=== PATIENT | male | born 1985 | race Hispanic/Latino ===

== ENCOUNTER → 2022-07-10 10:19 | Outpatient (CLI) | payer SELFPAY ==
--- NOTE | ~2022-07-10 | XR_ITS ---
EXAMINATION: XR chest 2V DATE: 07/10/2022 10:41 INDICATION: Chronic TECHNIQUE: PA and lateral views of the chest are obtained. COMPARISON: None available FINDINGS: The lungs are free of acute opacities. No pleural effusion or pneumothorax. The cardiomedia stinal silhouette is normal. The visualized bones and soft tissues are unremarkable. IMPRESSION: 1. No acute cardiopulmonary abnormality. Reviewed, dictated and finalized at location B.
== END ==
PROVIDERS: PCP Registered Nurse; Visit Provider Registered Nurse
DX: R05.3 Chronic cough (principal)
CPT/HCPCS: 71046

== ENCOUNTER 2024-09-23 09:11 | Emergency (ER) | payer SELFPAY ==
[2024-09-23] VITALS (9 sets, daily range): BP systolic 126–128; BP diastolic 73–85; PULSE 64–121; RESP 15–20; TEMP 36.7; O2SAT 98–100
--- NOTE | ~2024-09-23 | XR_ITS ---
EXAMINATION: XR chest 2V DATE: 09/23/2024 09:53 INDICATION: Chest pain TECHNIQUE: PA and lateral views of the chest were obtained. COMPARISON: Chest radiograph dated 07/10/2022 FINDINGS: The lungs are clear with no focal airspace opacities, pulmonary edema, pleural effusion or pneumothor ax. The cardiomediastinal silhouette is normal. Chronic minimal anterior wedging at a couple mid thor acic vertebral bodies. IMPRESSION: 1. No acute cardiopulmonary disease. Reviewed, dictated and finalized at location A.
--- NOTE | 2024-09-23 09:13 | ECG_ITS ---
Test Date: 2024-09-23 09:17:57 Measurements Intervals [place] Rate: 100 P: 57 MO: 144 QRS: 47 QRSD: 102 T: 23 QT: 334 QTc: 431 Interpretive Statements SINUS TACHYCARDIA INCOMPLETE RIGHT BUNDLE BRANCH BLOCK MINIMAL Q WAVES- INFERIOR LEADS BORDERLINE ECG No previous ECG available for comparison Electronically Signed On 09-23-2024 16:07:15 CDT by Sincere Alvarez D.O.
--- OUTSIDE RECORDS SUMMARY | 2024-09-23 09:15 | XMS_ITS | Data Portability ---
Author Organization ELISE SHIVANIMariaelena Plummer Address [address] [place] [address] Care Team Providers Care Vpk Teacher Name Role Phone MARISOL MYRICK Primary Care Provider [phone] Assessment No assessment recorded. Plan of Treatment Reminders Order Date Submit Date Provider Last Modified By Organization Details Last Modified Time Details Appointments None recorde d. Lab respira tory allerge n panel - [facility] 2023 024 MAUREEN LOCKE, [address] [place] [address], [facility] [address], [place], [address], 4 20:09:50 CBC w/ auto diff 2023 024 MAUREEN LOCKE, [address] [place] [address], [address], [place], [address], 4 20:09:50 CMP, serum or plasma 2023 024 MAUREEN LOCKE, [address] [place] [address], [facility] [address], [place], [address], 4 20:09:49 lipid panel, serum 2023 024 MAUREEN LOCKE, [address] [place] [address], [address], [place], [address], 4 20:09:48 Referral pulmono logist referra l 2023 024 [facility], [address], [place], [address], 16:22:44 Procedures pulmona ry stress test, simple (PROC) 2023 shadiclara Moore [facility] (Cardio Ekg), [address], [place], [address], 13:39:37 Surgeries None recorde d. Imaging PFT, complet e - W/ Post Broncho dilator Spirome try 2023 024 [facility] [address], [place], [address], 4 13:39:16 XR, chest, 2 view 2023 [facility] (Cardio Ekg), [address], [place], [address], 13:57:17 XR, sinuses 2023 [facility] (Cardio [facility]kg), [address] [facility], [place], [address], 4 14:09:54 Medication Orders prednis one 10 mg tablets in a dose pack 2023 [facility] [address], [address] [place], [address], 4 10:41:40 doxycyc line hyclate 100 mg capsule 2023 [facility], [address] [place], [address], 4 10:41:40 Flonase Allergy Relief 50 mcg/act uation nasal spray,s uspensi on 2023 [facility], [address] [place], [address], 4 10:41:39 azelast ine 137 mcg (0.1 %) nasal spray [address] [facility] [address], [address] [place] [address], [address], 4 10:41:41 pantopr azole 40 mg tablet, delayed release [address] [facility] [address], [address] [place] [address], [address], 4 10:35:17 Singula ir 10 mg tablet [address] [facility] [address], [address] [place] [address], [address], 4 10:35:18 albuter ol sulfate HFA 90 mcg/act uation aerosol inhaler [address] [facility] [address], [address] [place] [address], [address], 4 10:35:15 cetiriz ine 10 mg tablet 2023 024 [place] [address], [address] [place] [address], [address], 4 13:00:48 cefdini r 300 mg capsule 2022 023 [place] [address], [address] [place] [address], [address], 4 12:35:43 Patient TargetsNo targets recorded. Patient Instructions Encounter Date Encounter Id Patient Instructions Last Modified By Organization Details Last Modified Time 09/30/2023 [id number] A healthy lifestyle: care instructions Not available 09/30/2023 13:53:40 chronic cough: care instructions Not available 09/30/2023 13:53:32 tos cr consuelo: instrucciones de cuidado - [chronic cough: care instructions] Not available 09/30/2023 13:53:32 Visita de contro l para hombres de 50 a 65 a os: Instrucciones de cuidado - [Well Visit 50 to 65: Care Instructions] Not available 09/30/2023 13:53:58 12/27/2023 [id number] Dejar el tabaco: Instrucciones de cuidado - [Quitting Tobacco: Care Instructions] ajamous Not available 12/27/2023 10:35:09 tos cr consuelo: instrucciones de cuidado - [chronic cough: care instructions] ajamous Not available 12/27/2023 10:35:09 sinusitis cr consuelo: instrucciones de cuidado - [chronic sinusitis: care instructions] ajamous Not available 12/27/2023 10:35:09 02/28/2024 [id number] Dejar el tabaco: Instrucciones de cuidado - [Quitting Tobacco: Care Instructions] ajamous Not available 02/28/2024 10:41:33 tos cr consuelo: instrucciones de cuidado - [chronic cough: care instructions] ajamous Not available 02/28/2024 10:41:33 sinusitis cr consuelo: instrucciones de cuidado - [chronic sinusitis: care instructions] ajamous Not available 02/28/2024 10:41:33 Reason for Referral Clinical Neuropsychologist Referral for C hronic cough Chronic cough Referring Physician: Layla Rivas, Feather Maker, Encounter Date: 09/30/2023 Results Created Date Observation Date Name Description Value Unit Range Abnormal Flag Note LastModifiedBy Organization Detail LastModifiedTime 09/30/19 24 10/01/2023 LIPID PANEL cholesterol, total 216 mg/dL 100-19 9 above high normal Not Available [facility] ([facility]) [address] [place], [address], 10/05/2023 20:09:48 09/30/19 24 10/01/2023 LIPID PANEL triglyceride s 473 mg/dL 0-149 above high normal Not Available [facility] ([facility]) [address] [place], [address], 10/05/2023 20:09:48 09/30/19 24 10/01/2023 LIPID PANEL HDL cholesterol 42 mg/dL >39 Not Available [facility]) [address] [place], [address], 10/05/2023 20:09:48 09/30/19 24 10/01/2023 LIPID PANEL VLDL cholesterol jenna 79 mg/dL 5-40 above high normal Not Available [facility] ([facility]) [address] [place], [address], 10/05/2023 20:09:48 09/30/19 24 10/01/2023 LIPID PANEL LDL chol calc ([facility]) 95 mg/dL 0-99 Not Available [facility] ([facility]) [address] [place], [address], 10/05/2023 20:09:48 09/30/19 24 10/01/2023 COMP. METAB OLIC PANEL (14) glucose 96 mg/dL 70-99 Not Available [facility] ([facility]) [address] [place], [address], 10/05/2023 20:09:49 09/30/19 24 10/01/2023 COMP. METAB OLIC PANEL (14) BUN 22 mg/dL 6-20 above high normal Not Available [facility] ([facility]) [address] [place], [address], 10/05/2023 20:09:49 09/30/19 24 10/01/2023 COMP. METAB OLIC PANEL (14) creatinine 0.95 mg/dL 0.76-1 .27 Not Available [facility] ([facility]) [address] [place], [address], 10/05/2023 20:09:49 09/30/19 24 10/01/2023 COMP. METAB OLIC PANEL (14) eGFR 105 mL/mi n/1.7 3 >59 Not Available [facility] ([facility]) [address], [place], [address], 10/05/2023 20:09:49 09/30/19 24 10/01/2023 COMP. METAB OLIC PANEL (14) BUN/creatini ne ratio 23 9-20 above high normal Not Available [facility] ([facility]) [address] [place], [address], 10/05/2023 20:09:49 09/30/19 24 10/01/2023 COMP. METAB OLIC PANEL (14) sodium 141 mmol/ L 134-14 4 Not Available [facility] ([facility]) [address] [facility] [place], [address], 10/05/2023 20:09:49 09/30/19 24 10/01/2023 COMP. METAB OLIC PANEL (14) potassium 4.0 mmol/ L 3.5-5. 2 Not Available [facility] ([facility]) [address] [place], [address], 10/05/2023 20:09:49 09/30/19 24 10/01/2023 COMP. METAB OLIC PANEL (14) chloride 105 mmol/ L 96-106 Not Available [facility] ([facility]) [address] [facility] [place], [address], 10/05/2023 20:09:49 09/30/19 24 10/01/2023 COMP. METAB OLIC PANEL (14) carbon dioxide, total 21 mmol/ L 20-29 Not Available [facility] ([facility]) [address] [facility] [place], [address], 10/05/2023 20:09:49 09/30/19 24 10/01/2023 COMP. METAB OLIC PANEL (14) calcium 9.5 mg/dL 8.7-10 .2 Not Available [facility] ([facility]) [address] [facility] [place], [address], 10/05/2023 20:09:49 09/30/19 24 10/01/2023 COMP. METAB OLIC PANEL (14) protein, total 7.0 g/dL 6.0-8. 5 Not Available [facility] ([facility]) [address], [place], [address], 10/05/2023 20:09:49 09/30/19 24 10/01/2023 COMP. METAB OLIC PANEL (14) albumin 4.7 g/dL 4.1-5. 1 Not Available [facility] ([facility]) [address] [place], [address], 10/05/2023 20:09:49 09/30/19 24 10/01/2023 COMP. METAB OLIC PANEL (14) globulin, total 2.3 g/dL 1.5-4. 5 Not Available [facility] ([facility]) [address], [place], [address], 10/05/2023 20:09:49 09/30/19 24 10/01/2023 COMP. METAB OLIC PANEL (14) A/G ratio 2.0 Not Available [facility] ([facility]) [address], [place], [address], 10/05/2023 20:09:49 09/30/19 24 10/01/2023 COMP. METAB OLIC PANEL (14) bilirubin, total 0.7 mg/dL 0.0-1. 2 Not Available [facility] ([facility]) [address] [place], [address], 10/05/2023 20:09:49 09/30/19 24 10/01/2023 COMP. METAB OLIC PANEL (14) alkaline phosphatase 84 IU/L 44-121 Not Available [facility] ([facility]) [address], [place], [address], 10/05/2023 20:09:49 09/30/19 24 10/01/2023 COMP. METAB OLIC PANEL (14) AST (SGOT) 15 IU/L 0-40 Not Available [facility] ([facility]) [address] [facility], [place], [address], 10/05/2023 20:09:49 09/30/19 24 10/01/2023 COMP. METAB OLIC PANEL (14) ALT (SGPT) 14 IU/L 0-44 Not Available [facility] ([facility]) [address] [facility], [place], [address], 10/05/2023 20:09:49 09/30/19 24 09/30/2023 ALLER GENS W/TOT AL IGE AREA 8 class description COMMEN T Level s of Speci fic IgE Class Descr iptio n of Class ----- ----- ----- ----- ----- -- ----- ----- ----- ----- ----- < 0.10 0 Negat elissa 0.10 - 0.31 0/I Equiv ocal/ Low 0.32 - 0.55 I Low 0.56 - 1.40 II Moder ate 1.41 - 3.90 III High 3.91 - 19.00 IV Very High 19.01 - 100.0 0 V Very High >100. 00 Very High Not Available [facility] ([facility]) [address] [facility], [place], [address], 10/05/2023 20:09:49 09/30/19 24 10/05/2023 ALLER GENS W/TOT AL IGE AREA 8 immunoglobul in E, total 8 IU/mL 6-495 Not Available [facility] ([facility]) [address] [facility], [place], [address], 10/05/2023 20:09:49 09/30/19 24 10/05/2023 ALLER GENS W/TOT AL IGE AREA 8 U367-ThT D pteronyssinu s <0.10 kU/L class0 Not Available [facility] ([facility]) [address] [facility], [place], [address], 10/05/2023 20:09:49 09/30/19 24 10/05/2023 ALLER GENS W/TOT AL IGE AREA 8 Z547-TeP D farinae <0.10 Not Available [facility] ([facility]) [address] [place], [address], 10/05/2023 20:09:49 09/30/19 24 10/05/2023 ALLER GENS W/TOT AL IGE AREA 8 S319-BdT CAT dander <0.10 Not Available [facility] ([facility]) [address] [place], [address], 10/05/2023 20:09:49 09/30/19 24 10/05/2023 ALLER GENS W/TOT AL IGE AREA 8 F056-PfV dog dander <0.10 Not Available [facility] ([facility]) [address] [place], [address], 10/05/2023 20:09:49 09/30/19 24 10/05/2023 ALLER GENS W/TOT AL IGE AREA 8 r063-KyN bermuda grass <0.10 Not Available [facility] ([facility]) [address] [place], [address], 10/05/2023 20:09:49 09/30/19 24 10/05/2023 ALLER GENS W/TOT AL IGE AREA 8 e635-MpU salty grass 0.24 kU/L class0 /I abnormal Not Available [facility] ([facility]) [address] [place], [address], 10/05/2023 20:09:49 09/30/19 24 10/05/2023 ALLER GENS W/TOT AL IGE AREA 8 S440-QdN cockroach, taiwanese <0.10 kU/L class0 Not Available [facility] ([facility]) [address] [facility], [place], [address], 10/05/2023 20:09:49 09/30/19 24 10/05/2023 ALLER GENS W/TOT AL IGE AREA 8 U793-VxU penicillium chrysogen <0.10 Not Available [facility] ([facility]) [address] [facility], [place], [address], 10/05/2023 20:09:49 09/30/19 24 10/05/2023 ALLER GENS W/TOT AL IGE AREA 8 J329-ZsM cladosporium herbarum <0.10 Not Available [facility] ([facility]) [address] [facility], [place], [address], 10/05/2023 20:09:49 09/30/19 24 10/05/2023 ALLER GENS W/TOT AL IGE AREA 8 E375-ZsZ aspergillus fumigatus <0.10 Not Available [facility] ([facility]) [address] [facility], [place], [address], 10/05/2023 20:09:49 09/30/19 24 10/05/2023 ALLER GENS W/TOT AL IGE AREA 8 O397-PqL alternaria alternata <0.10 Not Available [facility] ([facility]) [address] [place], [address], 10/05/2023 20:09:49 09/30/19 24 10/05/2023 ALLER GENS W/TOT AL IGE AREA 8 V948-MyY maple/box elder <0.10 Not Available [facility] ([facility]) [address] [place], [address], 10/05/2023 20:09:49 09/30/19 24 10/05/2023 ALLER GENS W/TOT AL IGE AREA 8 U622-KaU cedar, mountain <0.10 Not Available [facility] ([facility]) [address] [place], [address], 10/05/2023 20:09:49 09/30/19 24 10/05/2023 ALLER GENS W/TOT AL IGE AREA 8 K968-ZpH oak, white <0.10 Not Available [facility] ([facility]) [address], [place], [address], 10/05/2023 20:09:49 09/30/19 24 10/05/2023 ALLER GENS W/TOT AL IGE AREA 8 U192-XzP elm, eritrean <0.10 Not Available [facility] ([facility]) [address], [place], [address], 10/05/2023 20:09:49 09/30/19 24 10/05/2023 ALLER GENS W/TOT AL IGE AREA 8 G274-QvH maple leaf sycamore <0.10 Not Available [facility] ([place] [facility]) [address], [place], [address], 10/05/2023 20:09:49 09/30/19 24 10/05/2023 ALLER GENS W/TOT AL IGE AREA 8 J268-XyM cottonwood <0.10 Not Available [facility] ([place] [facility]) [address], [place], [address], 10/05/2023 20:09:49 09/30/19 24 10/05/2023 ALLER GENS W/TOT AL IGE AREA 8 J562-OxZ tono, white <0.10 Not Available [facility] ([facility]) [address], [place], [address], 10/05/2023 20:09:49 09/30/19 24 10/05/2023 ALLER GENS W/TOT AL IGE AREA 8 E523-FiS walnut <0.10 Not Available [facility] ([facility]) [address], [place], [address], 10/05/2023 20:09:49 09/30/19 24 10/05/2023 ALLER GENS W/TOT AL IGE AREA 8 N764-VxU pecan, hickory <0.10 Not Available [facility] ([facility]) [address] [facility], [place], [address], 10/05/2023 20:09:49 09/30/19 24 10/05/2023 ALLER GENS W/TOT AL IGE AREA 8 P813-EvD white mulberry <0.10 Not Available [facility] ([facility]) [address] [facility], [place], [address], 10/05/2023 20:09:49 09/30/19 24 10/05/2023 ALLER GENS W/TOT AL IGE AREA 8 J554-YaE ragweed, short <0.10 Not Available [facility] ([facility]) [address] [facility], [place], [address], 10/05/2023 20:09:49 09/30/19 24 10/05/2023 ALLER GENS W/TOT AL IGE AREA 8 C645-RoV thistle, maldivian <0.10 Not Available [facility] ([facility]) [address] [facility], [place], [address], 10/05/2023 20:09:49 09/30/19 24 10/05/2023 ALLER GENS W/TOT AL IGE AREA 8 Q576-ZtN pigweed, common <0.10 Not Available [facility] ([facility]) [address] [place], [address], 10/05/2023 20:09:49 09/30/19 24 10/05/2023 ALLER GENS W/TOT AL IGE AREA 8 W644-AeK rough marshelder <0.10 Not Available [facility] ([facility]) [address] [place], [address], 10/05/2023 20:09:49 09/30/19 24 10/05/2023 ALLER GENS W/TOT AL IGE AREA 8 H910-FrG mouse urine <0.10 Not Available [facility] ([facility]) [address] [facility], [place], [address], 10/05/2023 20:09:49 09/30/19 24 10/01/2023 CBC WITH DIFFE RENTI AL/PL ATELE T WBC 8.1 x10e3 /uL 3.4-10 .8 Not Available [facility] ([facility]) [address] [facility], [place], [address], 10/05/2023 20:09:50 09/30/19 24 10/01/2023 CBC WITH DIFFE RENTI AL/PL ATELE T RBC 4.96 x10e6 /uL 4.14-5 .80 Not Available [facility] ([facility]) [address] [facility], [place], [address], 10/05/2023 20:09:50 09/30/19 24 10/01/2023 CBC WITH DIFFE RENTI AL/PL ATELE T hemoglobin 14.6 g/dL 13.0-1 7.7 Not Available [facility] ([facility]) [address] [facility], [place], [address], 10/05/2023 20:09:50 09/30/19 24 10/01/2023 CBC WITH DIFFE RENTI AL/PL ATELE T hematocrit 43.5 % 37.5-5 1.0 Not Available [facility] ([facility]) [address] [facility], [place], [address], 10/05/2023 20:09:50 09/30/19 24 10/01/2023 CBC WITH DIFFE RENTI AL/PL ATELE T MCV 88 fL 79-97 Not Available [facility] ([facility]) [address] [place], [address], 10/05/2023 20:09:50 09/30/19 24 10/01/2023 CBC WITH DIFFE RENTI AL/PL ATELE T MCH 29.4 pg 26.6-3 3.0 Not Available [facility] ([facility]) [address] [facility], [place], [address], 10/05/2023 20:09:50 09/30/19 24 10/01/2023 CBC WITH DIFFE RENTI AL/PL ATELE T MCHC 33.6 g/dL 31.5-3 5.7 Not Available [facility] ([facility]) [address] [facility], [place], [address], 10/05/2023 20:09:50 09/30/19 24 10/01/2023 CBC WITH DIFFE RENTI AL/PL ATELE T RDW 14.7 % 11.6-1 5.4 Not Available [facility] ([facility]) [address] [facility], [place], [address], 10/05/2023 20:09:50 09/30/19 24 10/01/2023 CBC WITH DIFFE RENTI AL/PL ATELE T platelets 190 x10e3 /uL 150-45 0 Not Available [facility] ([facility]) [address] [facility], [place], [address], 10/05/2023 20:09:50 09/30/19 24 10/01/2023 CBC WITH DIFFE RENTI AL/PL ATELE T neutrophils 57 % notest ab. Not Available [facility] ([facility]) [address] [facility], [place], [address], 10/05/2023 20:09:50 09/30/19 24 10/01/2023 CBC WITH DIFFE RENTI AL/PL ATELE T lymphs 30 % notest ab. Not Available [facility] ([facility]) [address] [facility], [place], [address], 10/05/2023 20:09:50 09/30/19 24 10/01/2023 CBC WITH DIFFE RENTI AL/PL ATELE T monocytes 9 % notest ab. Not Available [facility] ([facility]) [address] [facility], [place], [address], 10/05/2023 20:09:50 09/30/19 24 10/01/2023 CBC WITH DIFFE RENTI AL/PL ATELE T eos 2 % notest ab. Not Available [facility] ([facility]) [address] [facility], [place], [address], 10/05/2023 20:09:50 09/30/19 24 10/01/2023 CBC WITH DIFFE RENTI AL/PL ATELE T basos 1 % notest ab. Not Available [facility] ([facility]) [address] [facility], [place], [address], 10/05/2023 20:09:50 09/30/19 24 10/01/2023 CBC WITH DIFFE RENTI AL/PL ATELE T neutrophils (absolute) 4.7 x10e3 /uL 1.4-7. 0 Not Available [facility] ([facility]) [address] [facility], [place], [address], 10/05/2023 20:09:50 09/30/19 24 10/01/2023 CBC WITH DIFFE RENTI AL/PL ATELE T lymphs (absolute) 2.4 x10e3 /uL 0.7-3. 1 Not Available [facility] ([facility]) [address] [facility], [place], [address], 10/05/2023 20:09:50 09/30/19 24 10/01/2023 CBC WITH DIFFE RENTI AL/PL ATELE T monocytes(ab solute) 0.7 x10e3 /uL 0.1-0. 9 Not Available [facility] ([facility]) [address] [facility], [place], [address], 10/05/2023 20:09:50 09/30/19 24 10/01/2023 CBC WITH DIFFE RENTI AL/PL ATELE T eos (absolute) 0.1 x10e3 /uL 0.0-0. 4 Not Available [facility] ([facility]) [address] [facility], [place], [address], 10/05/2023 20:09:50 09/30/19 24 10/01/2023 CBC WITH DIFFE RENTI AL/PL ATELE T baso (absolute) 0.1 x10e3 /uL 0.0-0. 2 Not Available [facility] ([facility]) [address] [facility], [place], [address], 10/05/2023 20:09:50 09/30/19 24 10/01/2023 CBC WITH DIFFE RENTI AL/PL ATELE T immature granulocytes 1 % notest ab. Not Available [facility] ([facility]) [address] [facility], [place], [address], 10/05/2023 20:09:50 09/30/19 24 10/01/2023 CBC WITH DIFFE RENTI AL/PL ATELE T immature grans (abs) 0.1 x10e3 /uL 0.0-0. 1 Not Available [facility] ([facility]) [address] [facility], [place], [address], 10/05/2023 20:09:50 01/24/20 24 01/24/2024 XR, sinus es No observ ation record ed. [facility] Scheduling [address] [place], [address], 02/03/2024 11:45:03 01/24/20 24 01/24/2024 XR, chest , 2 view No observ ation record ed. [facility] Scheduling [address] [place], [address], 02/03/2024 11:45:04 02/25/20 24 01/24/2024 kristian metry , [facility] hodil ation No observ ation record ed. ajamous Not Available 2023 12:06:53 Result Notes None recorded. Problems Name Problem SNOMED Code Status Onset Date Resolution Date Notes Provider Name and Address Organization Details Recorded Time Tobacco user 771601527 Active 2020 Freya Gupta RN null, [place] - [facility] 2 15:20:36 Dyslipid emia 930297411 Active 2021 Freya Gupta RN null, [place] - [facility] 2 14:45:55 Body mass index 25-29 - overweig ht 674532383 Active 2021 JESSE Farley Attn: Accountin g,[address] [facility], [place], [address], [place] - [place] 2 15:25:49 Chronic cough 01356871 Active 2023 MADDIE GOMEZ Attn: Accountin g,[address] [facility], [place], [address], [place] - [place] 4 13:53:24 Constipa tion 18376431 Completed 09/12/2020 Removal Reason: resolved JESSE Farley Attn: Accountmally g,[address] [facility], [place], [address], [place] 1 15:48:55 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 Medical Equipment None Reported. Allergies No known drug allergies Medications Name Sig Start Date Stop Date Status Note LastModified by Organization Details LastModified Time prednison e 10 mg tablet TAKE 4 TABLETS BY MOUTH ONCE DAILY IN THE MORNING START THE DAY BEFORE PROCEDUR E 09/29 completed Not Available Not Available Not Available doxycycli ne hyclate 100 mg capsule TAKE 1 CAPSULE BY MOUTH TWICE DAILY FOR 7 DAYS active Not Available Not Available No t Available cetirizin e 10 mg tablet Take 1 tablet every day by oral route for 30 days. 2023 active Not Available Not Available Not Avai lable ibuprofen 800 mg tablet TK 1 T PO TID PRN 05/27 /2021 completed Not Available Not Available Not Available prednison e 20 mg tablet TAKE 2 TABLETS BY MOUTH ONCE DAILY FOR 5 DAYS 08/03 completed Not Available Not Available Not Available sulfameth oxazole 800 mg-trimet hoprim 160 mg tablet TAKE 1 TABLET BY MOUTH TWICE DAILY START DAY BEFORE PROCEDUR E 09/29 completed Not Available Not Available Not Available prednison e 10 mg tablets in a dose pack Take 1 dose pk by oral route for 6 days. 2023 active Not Available Not Available Not Avai lable amoxicill in 875 mg tablet TAKE 1 TABLET BY MOUTH TWICE DAILY FOR 10 DAYS 08/03 completed Not Available Not Available Not Available famotidin e 20 mg tablet TAKE 1 TABLET BY MOUTH TWICE DAILY 09/29 completed Not Available Not Available Not Available hydrocodo ne 7.5 mg-acetam inophen 325 mg tablet TAKE ONE TABLET BY MOUTH 90 MINUTES PRIOR TO PROCEDUR E. BRING REMAININ G TABS WITH YOU TO PROCEDUR E, AND TAKE PER MD INSTRUCT IONS PREOP. 09/29 completed Not Available Not Available Not Available pantopraz ole 40 mg tablet,de layed release TAKE 1 TABLET BY MOUTH ONCE DAILY active Not Available Not Available No t Available montel[address] st 10 mg tablet TAKE 1 TABLET BY MOUTH ONCE DAILY active Not Available Not Available No t Available mupirocin 2 % topical ointment APPLY A SMALL AMOUNT TID FOR 10 DAYS 09/12 completed Not Available Not Available Not Available azelastin e 137 mcg (0.1 %) nasal spray USE 2 SPRAY(S) IN EACH NOSTRIL TWICE DAILY active Not Available Not Available No t Available diazepam 10 mg tablet TAKE ONE TABLET BY MOUTH 90 MINUTES PRIOR TO PROCEDUR E. BRING REMAININ G TABS WITH YOU TO PROCEDUR E, AND TAKE PER MD INSTRUCT IONS PREOP. 09/29 completed Not Available Not Available Not Available albuterol sulfate HFA 90 mcg/actua tion aerosol inhaler INHALE 2 PUFFS BY MOUTH 4 TIMES DAILY active Not Available Not Available No t Available cefdinir 300 mg capsule TAKE 1 CAPSULE BY MOUTH EVERY 12 HOURS 09/29 completed Not Available Not Available Not Available fluticaso ne propionat e 50 mcg/actua tion nasal spray,john pension USE 1 SPRAY(S) IN EACH NOSTRIL TWICE DAILY active Not Available Not Available No t Available loratadin e 10 mg tablet TAKE 1 TABLET BY MOUTH ONCE DAILY 09/29 completed Not Available Not Available Not Available Dulcolax (bisacody l) 5 mg tablet,de layed release 1 tab 2-3 times a week 02/02 completed reports sometime s takes for 3 months then stops then will restart when necessar y Not Available Not Available Not Available cetirizin e 10 mg capsule Take by oral route. active Not Available Not Available No t Available Vitals Date Recorded Body height Body mass index (BMI) Body weight Heart rate Respiratory rate Body temperature Systolic blood pressure Diastolic blood pressure Provider Name and Address Organization Details Last Updated DateTime 3 163.83 cm 27 kg/m2 08565.7 8 g 88 /min 18 /min 98 [degF] 113 mm[Hg] 73 mm[Hg] Butch Mckenzie LPN [facility] 3 15:30:13 Date Recorded Body height Body mass index (BMI) Body weight Oxygen saturation Oxygen saturation in Arterial blood by Pulse oximetry Body temperature Heart rate Systolic blood pressure Diastolic blood pressure Provider Name and Address Organization Details Last Updated DateTime 4 163.83 cm 27.4 kg/m2 59938.9 6 g 97 % 97 % 97.9 [degF] 82 /min 118 mm[Hg] 62 mm[Hg] Lourdes Clemons MA [facility] 4 12:44:00 Date Recorded Body height Body mass index (BMI) Body weight Heart rate Respiratory rate Body temperature Systolic blood pressure Diastolic blood pressure Provider Name and Address Organization Details Last Updated DateTime 3 163.83 cm 27 kg/m2 58991.7 8 g 67 /min 18 /min 98 [degF] 96 mm[Hg] 60 mm[Hg] Butch Mckenzie LPN [facility] 3 16:33:56 Date Recorded Body height Oxygen saturation Oxygen saturation in Arterial blood by Pulse oximetry Heart rate Respiratory rate Body temperature Body mass index (BMI) Body weight Systolic blood pressure Diastolic blood pressure Provider Name and Address Organization Details Last Updated DateTime 4 163.83 cm 97 % 97 % 82 /min 18 /min 98.2 [degF] 28.1 kg/m2 68496.3 3 g 100 mm[Hg] 59 mm[Hg] Ann Tang MA [facility] 4 09:42:30 Date Recorded Body height Oxygen saturation Oxygen saturation in Arterial blood by Pulse oximetry Heart rate Respiratory rate Body temperature Body mass index (BMI) Body weight Systolic blood pressure Diastolic blood pressure Provider Name and Address Organization Details Last Updated DateTime 4 163.83 cm 96 % 96 % 71 /min 18 /min 98.2 [degF] 28.4 kg/m2 28844.2 4 g 95 mm[Hg] 49 mm[Hg] Angy Morris MA [facility] 4 10:03:54 Social History Question Answer Notes LastModified by Organizat ion Details LastModified Time Tobacco Smoking Status Former Smoker stopped a couple months ago Lourdes Clemons MA [facility] 09/30/2023 12:39:40 Do You Have An Advance Directive? No Information not available 09/12/2020 Are You Blind Or Do You Have Difficulty Seeing? No Information not available 09/12/2020 What Is Your Level Of Caffeine Consumption? Moderate Monsters, Coffee, Soda [email or web address] Information not available 11/27/2014 How Much Tobacco Do You Chew? None [email or web address] Information not available 11/27/2014 In The 14 Days Before Symptom Onset, Have You Had Close Contact With A Laboratory-confir med COVID-19 While That Case Was Ill? No Information not available 09/12/2020 In The 14 Days Before Symptom Onset, Have You Had Close Contact With A Person Who Is Under Investigation For COVID-19 While That Person Was Ill? No Information not available 09/12/2020 Have You Been To An Area Known To Be High Risk For COVID-19? No Information not available 09/12/2020 Are You Deaf Or Do You Have Serious Difficulty Hearing? No Information not available 09/12/2020 What Type Of Diet Are You Following? REGULAR Information not available 11/27/2014 Education Less Than 8th Grade [email or web address] Information not available 11/27/2014 Are There Any Guns Present In Your Home? No [email or web address] Information not available 11/27/2014 Hard Of Hearing Or Deaf In One Or Both Ears? No [email or web address] Information not available 11/27/2014 Legally Blind In One Or Both Eyes? No [email or web address] Information no t available 11/27/2014 Marital Status Domestic Partner [email or web address] Information not available 11/27/2014 Do You Have A Medical Power Of Lead Technical Writer? No Information not available 12/27/2023 What Was The Date Of Your Most Recent Tobacco Screening? 12/27/2023 Information not available 12/27/2023 How Many Children Do You Have? 2 Information not available 02/02/2022 What Is Your Current Pack Years? [email or web address] Information not available 08/08/2021 Do You Use Protection During Sex? No Information not available 02/02/2022 What Is Your Relationship Status? Information not available 09/12/2020 Do You Use Your Seat Belt Or Car Seat Routinely? Yes Information not available 09/12/2020 Seat Belts Used Routinely Yes [email or web address] Information not available 11/27/2014 Are You Sexually Active? Yes Information not available 02/02/2022 Smoke Alarm In Home Yes [email or web address] Information not available 11/27/2014 Do You Have Smoke And Carbon Monoxide Detectors In Your Home? Yes Information not available 09/12/2020 Are You Passively Exposed To Smoke? No Information no t available 09/12/2020 How Much Tobacco Do You Smoke? No Information not available 11/27/2014 General Stress Level Low [email or web address] Information not available 11/27/2014 Do You Use Sunscreen Routinely? No Information not available 02/02/2022 Sex: Male Functional Status Question Answer Note LastModified by Organizat ion Details LastModified Time Do you use any illicit or recreational drugs? No Information not available 09/12/2020 Do you or have you ever used any other forms of tobacco or nicotine? No Information not available 09/12/2020 What is your level of alcohol consumption? Moderate 1 beer 4-5 day/ week Information not available 09/12/2020 Are you currently employed? Yes Information not available 09/12/2020 Are you able to care for yourself? 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 Occasional [email or web address] Information not available 11/27/2014 Mental Status Question Answer Note LastModified by Organization D etails LastModified Time Do you feel stressed (tense, restless, nervous, or anxious, or unable to sleep at night)? [id number] Information not available 02/02/2022 Family History Relationship Description Onset Age of this Age Resolved Age Notes LastModified by Organization Details LastModified Time Mother Alive [email or web address] Not available 02/2015 16:30:59 Mother Osteoporosis [email or web address] Not availab le 09/12/2020 15:54:58 Father Diabetes mellitus 43 [email or web address] Not available 2014 16:30:59 Brother Alive [email or web address] Not available 16:30:59 Paternal Grandmother Diabetes mellitus 65 [email or web address] Not available 2014 16:30:59 Medical History No medical history recorded. Immunizations Vaccine Type Date Status Note Provider Nam e and Address Organization Details Recorded Time COVID-19, mRNA, LNP-S, PF, 100 mcg/0.5mL dose or 50 mcg/0.25mL dose 08/05/2020 completed Freya Gupta RN null, [place] - [facility] 09/12/2020 15:25:12 COVID-19, mRNA, LNP-S, PF, 100 mcg/0.5mL dose or 50 mcg/0.25mL dose 08/30/2020 completed Freya Gu[place], [place] [facility] 09/12/2020 15:25:25 Tdap 09/12/2020 completed Lourdes Clemons [place] null, [place] [facility] 09/12/2020 16:41:32 COVID-19, mRNA, LNP-S, PF, 30 mcg/0.3 mL dose 04/04/2021 completed Freya Gu[place] RN null, [place] [facility] 04/04/2021 11:36:40 Influenza, split virus, quadrivalent, PF 02/02/2022 completed Marisol Myrick [facility] Attn: Accounting[address] [facility], [place], [address], [facility] - [facility] 02/02/2022 16:48:53 Past Encounters Encounter ID Performer Location Encounter Start Date Encounter Closed Date Diagnosis/Indication Diagnosis SNOMED-CT Code Diagnosis ICD10 Code [facility] [id number] [facility] [address] [place] [address] 11/27/2014 15:47:57 12/03/2014 13:18:35 Adult health examination 415642277 Patient refuses TDAP Vaccine booster at this time Family his tory of diabetes mellitus 402208760 Constipation 46488272 Posterior rhinorrhea 60641485 Recommend use otc antihistsm ine [id number] Marisol [facility] [address] [place] [address] 09/12/2020 14:57:51 09/17/2020 15:25:44 Adult health examination 644478184 Z00.01 35 y/o HM presents for general check up. Has gastritis symptoms. He drinks alcohol regularly and smokes 2 cigs per week. Body mass index 25-29 - overweight 413229100 Z68.27 BMI 27.1 Ht 5' 4.5 Healthy weight 110-150 Chronic gastritis 910793 9 K29.50 stop daily alcohol intake Family his tory of diabetes mellitus in first degree relative 551322370 Z83.3 father HIV screening 524648005 Z11.4 Hypertensi on screening 534129925 Z13.6 B/P 102/72 normal Administra tion of diphtheria, pertussis, and tetanus vaccine 252285004 Z23 Pain of to e of right foot 4723246016 31603 M79.674 Tobacco user 902597762 Z 72.0 2 cigs per week x 4 years History of SARS-CoV-2 29 29943395 69341874 Z86.16 back in november 2019 no lingering symptoms Nasal congestion 6510169 0 R09.81 Hematochezia 390682757 K 92.1 [id number] Hernandez Dennis MD [facility] [address] [place] [address] 09/20/2020 09:54:04 09/23/2020 17:15:02 Family history of diabetes mellitus in first degree relative 240504457 Z83.3 father HIV screening 591724411 Z11.4 Pain of to e of right foot 2812365455 93254 M79.079 [id number] Hernandez Dennis MD [facility] [address] [place] [address] 04/04/2021 10:23:15 04/06/2021 16:10:52 Administration of SARS-CoV-2 mRNA vaccine 3947128964 Z23 [id number] Hernandze Dennis MD [facility] [address] [place] [address] 08/08/2021 15:08:34 08/12/2021 15:46:03 Adult health examination 053540268 Z00.01 36 y/o HM presents for general check up. Has gastritis symptoms. He drinks alcohol regularly and smokes 2 cigs per week. Body mass index 25-29 - overweight 452953666 Z68.27 BMI 27. Ht 5' 4.5 Healthy weight 110-150 Chronic gastritis 263666 9 K29.50 stop daily alcohol intake Hypertensi on screening 063865557 Z13.6 B/P 130/76 normal Tobacco user 313019313 Z 72.0 2 cigs per week x 4 years History of SARS-CoV-2 29 45749742 49683715 Z86.16 back in november 2019 no lingering symptoms Nasal congestion 4410323 0 R09.81 Dyslipidemia 494741041 E 78.5 09/20/2020 cho 199trig 144Hdl 42LDL 131Avoid all breads, potatoes, cereal, pasta, rice, margarine, refined sugars, milk yogurt, ice cream, juices, soda (including diet), beer, and manmade or manufactur ed desserts. Enjoy steak, fish, chicken (no skin), pork, butter, vegetables , beans, nuts, whole eggs, cheese (low fat or skim), cream in your coffee. Persistent cough 0903888 02 R05.3 36 y/o HM with c/o persistent dry cough worse in the am since having covid 19 back in november 2019 [id number] Hernandez Dennis MD [facility] [address] [place] [address] 02/02/2022 14:38:41 02/03/2022 16:19:02 Posterior rhinorrhea 13249329 R09.82 Recommend use otc antihistsm ine Dyslipidemia 335951532 E 78.5 09/20/2020 cho 199trig 144Hdl 42LDL 131 08/08/2021 cho 190Trig 423HDL 36LDL 85Avoid all breads, potatoes, cereal, pasta, rice, margarine, refined sugars, milk yogurt, ice cream, juices, soda (including diet), beer, and manmade or manufactur ed desserts. 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 Enjoy steak, fish, chicken (no skin), pork, butter, vegetables , beans, nuts, whole eggs, cheese (low fat or skim), cream in your coffee. Posterior rhinorrhea 758 26906 R09.82 Recommend use otc antihistsm ine Chronic sp henoidal sinusitis 84659813 J32.3 Depression screening 171 909483 Z13.31 PHQ 2-9 negative Mental hea lth screening 759213424 Z13.39 MOOK-7 negative [id number] Gerber Ch MD [facility] [address] [place] [address] 09/21/2022 15:16:53 09/30/2022 15:01:05 Acute sinusitis 22891495 J01.90 Follow-up in 2 weeks [id number] Gerber Ch MD [facility] [address] [place] [address] 10/12/2022 16:18:58 10/13/2022 12:26:39 Nasal obstruction 670167471 J34.89 continue Flonase and Zyrtec see him back if it deteriorat es [id number] Gabriel elizabeth MD [facility] [address] [place] [address] 09/30/2023 12:26:30 10/04/2023 13:06:09 Chronic cough 80065982 R05.3 Patient with known sinus obstructio n requiring surgery, reflux and postnasal drip presents for chronic cough x 3 years. worse at night and in winter. xray normal 2022. past allergy panel normal. - repeat test- send to pulm- obtain CT sinus- start allergy pill- control reflux Adult heal th examination 264736326 Z00.00 - labs- pulm referral-d iscussed diet Overweight 058435745 E66 .3 [id number] Frandy Maldonado MD [facility] [address] [place] [address] 12/27/2023 09:06:48 12/27/2023 14:15:26 Chronic cough 58530775 R05.3 GERD, chronic sinusitis, possible asthma and allergic rhinitisAl buterol PRN, PFTs, CXR, Sinus Xray, Singulair, Protonix, Chronic sinusitis 302823 00 J32.9 Sinus Xray, Flonase Acid reflux 010865700 K2 1.9 See above Nicotine dependence 5629 4008 F17.200 Minimal, trauma counsellor to quit for 5 minutes [id number] Frandy Maldonado MD [facility] [address] [place] [address] 02/28/2024 09:15:10 02/28/2024 12:03:30 Chronic cough 08464233 R05.3 GERD, chronic sinusitis, possible asthma and allergic rhinitisAl buterol PRN, FEV1 98%, FVC 83%, FEV1/FVC 99%, DLCO 89%, BD-(2023), CXR unremarkab le Chronic sinusitis 770854 00 J32.9 Sinus Xray, unremarkab le, Flonase Acid reflux 700273453 K2 1.9 See above Nicotine dependence 5629 4008 F17.200 Minimal, trauma counsellor to quit for 5 minutes Chest over-expanded 2496 23926 Q67.8 TLC 215% Air trapping 50790542 J9 8.8 RV 516% Health Concerns Section Related Observation LastModified by Organization Detai ls LastModified Time None Recorded Concern Status LastModified by Organization Details LastModified Time None Recorded Advance Directives Directive N: Payers Encounter Date Sequence Insurance Name Policy Number Policy Norris Covered Member ID Norris Member ID Guarantor Name 10/12/2022 1 *SELF PAY* Re ne Mai 09/30/2023 1 *SELF PAY* Re ne Mai 12/27/2023 1 *SELF PAY* Re ne Mai 02/28/2024 1 *SELF PAY* Re ne Mai Notes Date Note Type Note Provider Name and Address Organization Details Recorded Time 3 text/htm l patient complaining of chronic sinusitis. He has nasal congestion and drainage into his throat. He has been on intranasal steroids and antihistamines for over a year without relief. Gerber Ch MD [address] [place], [address], [facility] 09/21/2022 15:43:41 3 text/htm l patient complaining of nasal obstruction. He feels like he has something in the right side of his nose. He gets intermittent sinus infections worse in the winter than the summer. He has recent antibiotics doing well at this time. Gerber Ch MD [address], [place], [address], [facility] 10/12/2022 16:52:13 4 text/htm l HyperlipidemiaReported bypatient.Duration:chronic Prior Tests:highest cholesterol level: (08/08/2021 cho 190 Trig 423 HDL 36 LDL 85) Control:usually poorly controlled;not at goal Current Therapy:manages with LSM Compliance:compliant; compliant with diet; exercises Complications:no coronary artery disease; no peripheral artery disease; no cardiovascular disease Risk Factors:low HDL level; high triglyceridesSinusitis/All ergyReported bypatient.Location:ethmoid ; sphenoid Associated Symptoms:no fever; no weight loss; no hemoptysis; no hematemesis; no difficulty breathing; no feeling of strangulation; no nausea or vomiting; no headache; no facial pain; no sore throat; not constantly clearing the throat; no nasal itching; no eye itching; no pain behind the eyes; no skin itching;nasal discharge from both nostrils;sinus pain nasal;thick phlegm in throat;nasal discharge;nasal passage blockage right;ear fullness Onset/Timing:recurring; occurs during particular seasons of the year fall Quality:no pain; no itching; no hoarseness; no throbbing; minimal discomfort; improving;congested; dry cough Duration:intermittent; had 2 sinus infections treated with antibiotics in the last year Severity:no pain; does not limit daily activities; no nosebleeds (epistaxis); no snoring;frequent breathing through the mouth Context:no recent upper respiratory infection; no recent sick contacts; not worse with seasonal allergen exposure; not worse around animals; not worse around pollen; not worse around dust; not worse around molds; not worse when mowing grass; not worse with certain foods; not worse with odors;worse with environmental exposure(weather changes) Risk Factors:no current smoking or tobacco use; no increased stress; no history of nasal trauma; no allergy to aspirin; no history of nasal polyps; no history of asthma; no chemotherapy; no DM; no HIV; no immunodeficiency;history of smoking;family history of allergies Alleviating factors:relief with nasal steroid Flonase Aggravating factors:not worse with change in medication; not worse during an upper respiratory infection (a cold); not worse when allergies are active; worse with damp weather; worse with cold weather Prior Testsallergy testing Prior Treatmentnasal steroids:fluticasone; oral steroids:prednisone Alfa is a 38 yo hm here for chronic cough and labs approx 3 years of cough since covid 2020. cough is most of the time and worse at night and in the winter. cough is dry and does happen in the daytime. nothing is taken for cough. He saw ENT at [facility] and was told he was fine. Since I did not feel fine I went to a place in [facility] and had my sinuses scraped. They have a ct that he will bring. He will bring in name of place to get records. states flonase helps. does still have post-nasal drip- rare.He does continue to have congestion of R side of his face. He has not f/u. He does have reflux a few time per week and is not using anything.He has no animals in his house. works in [employer] . does not handle any chemical sprays . [place]. no animals. no mold that he know of at home. His house has curtains but no carpets. no epistaxis. MADDIE GOMEZ Attn: Accounting[address] [place], [address], [place] - [facility] 09/30/2023 13:54:28 4 text/htm l The patient is 38 YOHM with history of cough for the past 2 years. His cough is dry, mainly in AM and evening. He has history of chronic sinusitis. No history of asthma. he does not use any inhaler. he has history of acid reflux. he smokes occasionally and drink Alcohol on the weekend. He lives in old house in [facility], no pets,up to date with COVID-19 vaccine. he has postnasal drainage. He uses Flonase and allergy test showed he's allergic to grass. Abdulsalam Jamous, MD [address], [place], [address], [place] [facility] 12/27/2023 10:35:46 4 text/htm l Patient is here for follow up. He is having trouble with cough and drainage. Frandy Maldonado MD [address], [place], [address], [facility] - [facility] 02/28/2024 10:42:13
[2024-09-23] MEDS: BELLADONNA ALK/PHENOB ELIX 10 ML, MAG HYDROX/ALUMINUM HYD/SIMETH 30 ML, LIDOCAINE 2% VI... PO (09:40)
[2024-09-23] MEDS: ASPIRIN 81 MG CHEWABLE TABLET 324 MG PO (09:42)
[2024-09-23] MEDS: IPRATROPIUM 0.5 MG/ALBUTEROL SULFATE 2.5 MG AMPUL.NEB 3 ML INHALATION (09:52)
[2024-09-23 09:54] LABS: Basophils Absolute Auto 0.1 K/mm3 (0.0-0.1); Basophils Percent Auto 0.8 % (0.2-1.2); Eosinophils Absolute Auto 0.2 K/mm3 (0-0.3); Eosinophils Percent Auto 3.3 % (0-4.4); Hematocrit 40.3 % (42.0-52.0); Hemoglobin 13.4 g/dL (14.0-18.0); Immature Granulocyte Absolute 0.04 K/mm3 (0.00-0.031); Immature Granulocyte Percent A 0.6 % (0-0.5); Lymphocytes Percent Auto 25.6 % (18.3-44.2); Mean Corpuscular HGB Conc 33.3 g/dl (32-36); Mean Corpuscular Hemoglobin 28.2 pg (26-34); Mean Corpuscular Volume 84.7 fl (80-100); Mean Platelet Volume 11.4 fl (7.4-10.4); Monocytes Absolute Auto 0.6 K/mm3 (0.1-0.6); Monocytes Percent Auto 8.6 % (2.6-8.5); Neutrophils Absolute Auto 4.1 K/mm3 (1.3-6.7); Neutrophils Percent Auto 61.1 % (45.5-73.1); Platelet Count Result 166 k/mm3 (150-375); Red Blood Count 4.76 M/mm3 (4.6-6.20); Red Cell Distribution Width 13.2 % (11.5-14.5); White Blood Count 6.6 K/mm3 (4.5-10.0)
[2024-09-23 10:13] LABS: Prothrombin Time 13.6 Seconds (11.1-14.7)
[2024-09-23 10:14] LABS: Partial Thromboplastin Time 28.3 Seconds (22.3-36.8)
[2024-09-23 10:30] LABS: Alanine Aminotransferase 26 U/L (6-50); Albumin Level 4.6 g/dL (3.5-5.1); Alkaline Phosphatase 77 U/L (38-126); Anion Gap 12 mmol/L (4-12); Aspartate Amino Transferase 33 U/L (17-59); Bilirubin,Total 0.7 mg/dL (0.2-1.3); Blood Urea Nitrogen 21 mg/dL (9-20); Carbon Dioxide 20 mmol/L (22-30); Chloride 107 mmol/L (98-107); Estimated CRCL calculation 102 ml/min; Estimated Glomerular Filt Rate > 60; Glucose 125 mg/dL (65-110); Lipase 57 U/L (23-300); Potassium 3.4 mmol/L (3.4-5.0); Sodium 139 mmol/L (137-145); Total Protein 7.5 g/dL (6.3-8.2)
[2024-09-23 10:40] LABS: Troponin I < 0.012 ng/mL (0.000-0.034)
--- NOTE | 2024-09-23 11:32 | ED.GENADULT ---
HPI - General Adult General Chief complaint: Chest Pain Stated complaint: chest pain Time Seen by Provider: 09/23/24 09:26 History of Present Illness HPI narrative: Patient is a 39-year-old male who presents ER with chest pain. Is been ongoing intermittently throughout the week and worsened today when he drinks some coffee. No difficulty breathing created has frequent coughing. Has seen a semiconductor wafers tester the coughing receive some inhalers but does not want to go back to be evaluated more. No exertional chest discomfort. No fevers or chills or sweats. Related Data Allergies Allergy/AdvReac Type Severity Reaction Status Date / Time No Known Allergies Allergy Unverified 02/28/17 18:56 Review of Systems Review of Systems: All systems reviewed & are unremarkable except as noted in HPI and below Constitutional: Constitutional: Reports no additional constitutional complaints Cardiovascular: Cardiovascular: Reports no additional cardiovascular complaints Respiratory: Respiratory: Reports no additional respiratory complaints Gastrointestinal: Gastrointestinal: Reports no additional gastrointestinal complaints Musculoskeletal: Musculoskeletal: Reports no additional musculoskeletal complaints PMFSH Past Medical History Medical History (Updated 09/23/24 @ 12:29 by Az Butler MD) Chronic sinusitis Chronic cough Surgical History Surgical History (Updated 09/23/24 @ 11:33 by Az Butler MD) No pertinent past surgical history Exam Narrative: GENERAL: Well-appearing, well-nourished, and in no acute distress. HEAD: Normocephalic, atraumatic. ENT: Mucous membranes moist. CHEST: Clear to auscultation. No respiratory distress. Frequent coughing. HEART: Regular rate and rhythm. Normal peripheral pulses. ABDOMEN: Soft, nontender, nondistended. EXTREMITIES: Normal range of motion. No edema. SKIN: Warm, dry, no rash. NEURO: Alert and oriented x3. PSYCH: Normal mood and affect. Course Course Emergency Course: Patient resting comfortably. Normal lab work and imaging. Coughing decreased with nebulizer treatment. Patient felt appropriate for discharge home. Vital Signs Vital signs: Vital Signs Temperature 98.0 F 09/23/24 09:14 Pulse Rate 112 H 09/23/24 09:14 Respiratory Rate 20 09/23/24 09:14 Blood Pressure 128/73 09/23/24 09:14 Pulse Oximetry 100 09/23/24 09:14 Oxygen Delivery Room Air 09/23/24 09:14 Temperature 98.0 F 09/23/24 09:14 Pulse Rate 85 09/23/24 09:59 Respiratory Rate 16 09/23/24 09:59 Blood Pressure 128/73 09/23/24 09:14 Pulse Oximetry 100 09/23/24 09:14 Oxygen Delivery Room Air 09/23/24 09:14 Medical Decision Making Vital Signs Vital Signs: Vital Signs Temperature 98.0 F 09/23/24 09:14 Pulse Rate 112 H 09/23/24 09:14 Respiratory Rate 20 09/23/24 09:14 Blood Pressure 128/73 09/23/24 09:14 Pulse Oximetry 100 09/23/24 09:14 Oxygen Delivery Room Air 09/23/24 09:14 Temperature 98.0 F 09/23/24 09:14 Pulse Rate 85 09/23/24 09:59 Respiratory Rate 16 09/23/24 09:59 Blood Pressure 128/73 09/23/24 09:14 Pulse Oximetry 100 09/23/24 09:14 Oxygen Delivery Room Air 09/23/24 09:14 Lab Data 09/23/24 09:29 09/23/24 09:29 Labs: Lab Results 09/23/24 Range/Units 09:29 WBC 6.6 (4.5-10.0) K/mm3 RBC 4.76 (4.6-6.20) M/mm3 Hgb 13.4 L (14.0-18.0) g/dL Hct 40.3 L (42.0-52.0) % MCV 84.7 (80-100) fl MCH 28.2 (26-34) pg MCHC 33.3 (32-36) g/dl RDW 13.2 (11.5-14.5) % Plt Count 166 (150-375) k/mm3 MPV 11.4 H (7.4-10.4) fl Immature Gran % (Auto) 0.6 H (0-0.5) % Neut % (Auto) 61.1 (45.5-73.1) % Lymph % (Auto) 25.6 (18.3-44.2) % [place] % (Auto) 8.6 H (2.6-8.5) % Eos % (Auto) 3.3 (0-4.4) % Baso % (Auto) 0.8 (0.2-1.2) % Lymph # (Auto) 1.70 (0.9-3.2) K/mm3 [place] # (Auto) 0.6 (0.1-0.6) K/mm3 Eos # (Auto) 0.2 (0-0.3) K/mm3 Baso # (Auto) 0.1 (0.0-0.1) K/mm3 Abs Immat Gran (auto) 0.04 H (0.00-0.031) K/mm3 Absolute Neuts (auto) 4.1 (1.3-6.7) K/mm3 Absolute Nucleated RBC 0.000 (0.0-0.012) K/mm3 Nucleated RBC % 0.0 (0.0-0.2) % PT 13.6 (11.1-14.7) Seconds INR 1.0 APTT 28.3 (22.3-36.8) Seconds Sodium 139 (137-145) mmol/L Potassium 3.4 (3.4-5.0) mmol/L Chloride 107 (98-107) mmol/L Carbon Dioxide 20 L (22-30) mmol/L Anion Gap 12 (4-12) mmol/L BUN 21 H (9-20) mg/dL Creatinine 0.73 (0.7-1.3) mg/dL Estim Creat Clear Calc 102 ml/min Estimated GFR > 60 (59 - ) Glucose 125 H (65-110) mg/dL Calcium 9.0 (8.4-10.2) mg/dL Total Bilirubin 0.7 (0.2-1.3) mg/dL AST 33 (17-59) U/L ALT 26 (6-50) U/L Alkaline Phosphatase 77 (38-126) U/L Troponin I < 0.012 (0.000-0.034) ng/mL Total Protein 7.5 (6.3-8.2) g/dL Albumin 4.6 (3.5-5.1) g/dL Lipase 57 (23-300) U/L Imaging Data Radiologist's impression: ITS Impressions Chest X-Ray 09/23/24 10:03 IMPRESSION: 1. No acute cardiopulmonary disease. ECG Data EKG #1: ECG completion date: 09/23/24 ECG completion time: 09:17 EKG Interpretation: tachycardia (100), sinus rhythm, no ectopy, no ST changes and normal QRS Discharge Plan Discharge Clinical Impression: Cough, Atypical chest pain Patient Disposition: Home Condition: Stable Instructions: Chest Pain (ED) Additional Instructions: Return to the ER if you have fever over 101F, you cannot keep down food/water, or you have other concerns. Patient Language: [place] Prescriptions: New prednisone 50 mg tablet 50 mg PO DAILY Qty: 7 0RF albuterol sulfate 90 mcg/actuation HFA aerosol inhaler 4 puff inhalation QID PRN (Reason: shortness of breath or wheezing) Qty: 8.5 0RF Follow-up/Referrals: Eduar,Marisol, PRODUCT DELIVERY SPECIALIST [Primary Care Provider] - 1 Week Quality HEART score for chest pain patients History: slightly suspicious ECG: normal Age: < or = to 45 years Risk factors: no risk factors known Troponin: < or = to 1x normal limit Heart score: 0
== END 2024-09-23 12:45 | disposition home or self-care (01) ==
PROVIDERS: Emergency Provider Emergency Medicine; PCP Registered Nurse
DX: R07.89 Other chest pain (principal); R05.9 Cough, unspecified; J32.9 Chronic sinusitis, unspecified; R00.0 Tachycardia, unspecified; I45.10 Unspecified right bundle-branch block
CPT/HCPCS: 36415; 71046; 80053; 83690; 84484; 85025; 85610; 85730; 93005; 94640; 99284; A9270